=== PATIENT | female | born 1945 | race Two or more races ===

== ENCOUNTER 2018-06-10 13:21 | Emergency (ER) | payer BC, OTHER ==
[2018-06-10 13:31] VITALS: PULSE 76; TEMP 97.6; BMI 33.6
[2018-06-10] MEDS ORDERED: SODIUM CHLORIDE 500 ML IV STA (13:43)
[2018-06-10] MEDS ORDERED: ONDANSETRON 4 MG/2 ML VIAL IVPB ONE (13:43)
--- NOTE | 2018-06-10 13:43 | PDOC ---
History of Present Illness - General Chief Complaint: Nausea/Vomiting Stated Complaint: vomiting Time Seen by Provider: 06/10/18 13:41 - History of Present Illness Initial Comments: 06/10/18 17:38 Chief complaint: Nausea and vomiting History of present illness: Patient complains of 3 episodes of nausea and vomiting one yesterday morning after breakfast, once yesterday evening after dinner, and once this morning after drinking some water. She has had similar episodes in the past that have been attributed to diabetic gastroparesis. The daughter states that the symptoms occur frequently and seemed to be related to stress. Patient has been under considerable stress of late. Review of systems: There has been no abdominal pain, constipation, or diarrhea. Bowel movements are normal, last movement yesterday. No fever/chills, chest pain , shortness of breath, visual or focal neurologic symptoms, unsteadiness of gait. The patient is tolerating by mouth food and fluids in between episodes. Past medical history: Acw-[id number] diabetes, obesity, high blood pressure controlled on medication Social history: Lives alone but family is nearby, visits frequently, fully active and ambulatory, cares for herself, still driving Family history: Reviewed and noncontributory Physical exam: Alert and oriented moderately obese no acute distress cheerful and cooperative, the patient is lying comfortably and appears to be asymptomatic at present Afebrile, vital signs normal No pallor or icterus. PERRLA, fundi benign, ENT clear Neck supple without bruit mass or nodes Lungs clear with full breath sounds bilaterally. No wheezes rales or rhonchi CV S1 and S2 normal, regular, without murmur rub or gallop without JVD or edema pulses full and symmetric no bruits Abdomen nondistended. Bowel sounds normal. Soft without mass tenderness organomegaly. No CVAT Neurological intact Impression: Possible exacerbation of diabetic gastroparesis or symptoms of acute anxiety. Plan: CBC and chemistries, symptomatic treatment and further medical evaluation treatment depending on results of laboratory tests and response to treatment. Past History - Past Medical History Allergies/Adverse Reactions: Allergies Allergy/AdvReac Type Severity Reaction Status Date / Time No Known Allergies Allergy Verified 06/10/18 13:22 Home Medications: Ambulatory Orders Anastrozole [Arimidex -] 1 mg PO DAILY 06/10/18 Cholecalciferol (Vitamin D3) [Vitamin D3] 1,000 unit PO ASDIR 06/10/18 Cyanocobalamin (Vitamin B-12) [Vitamin B-12] 0 mcg PO ASDIR 06/10/18 Glipizide 5 mg PO DAILY 06/10/18 Levothyroxine [Synthroid -] 100 mcg PO DAILY 06/10/18 Ondansetron [Zofran Odt -] 4 - 8 mg SL TID PRN #15 od.tablet 06/10/18 Simvastatin 40 mg PO DAILY 06/10/18 metFORMIN HCL [Metformin HCl] 1,000 mg PO DAILY 06/10/18 Cancer: Yes (Left Breast) COPD: No Diabetes: Yes Hypercholesterolemia: Yes Thyroid Disease: Yes (hypo) - Suicide/Smoking/Psychosocial Hx Smoking History: Never smoked Hx Alcohol Use: No Drug/Substance Use Hx: No Substance Use Type: None *Physical Exam - Vital Signs Last Vital Signs Temp Pulse Resp BP Pulse Ox 97.6 F 76 18 140/71 95 06/10/18 13:22 06/10/18 13:22 06/10/18 13:22 06/10/18 13:22 06/10/18 13:22 ED Treatment Course - LABORATORY CBC & Chemistry Diagram: 06/10/18 14:02 06/10/18 14:02 Medical Decision Making - Medical Decision Making 06/10/18 17:44 CBC and chemistries without significant abnormalities. Serum glucose is 170. After IV fluids and Zofran, the patient is much more comfortable. No nausea or vomiting. No abdominal pain. Discussed relaxation techniques with the patient and her family and discharged to follow-up with primary physician, fully ambulatory and in no pain or other distress. *DC/Admit/Observation/Transfer Diagnosis at time of Disposition: Gastroparesis - Discharge Dispostion Disposition: HOME Condition at time of disposition: Improved Decision to Admit order: No - Prescriptions Prescriptions: Ondansetron [Zofran Odt -] 4 - 8 mg SL TID PRN #15 od.tablet PRN Reason: Nausea And/Or Vomiting - Referrals - Patient Instructions Printed Discharge Instructions: DI for Nausea -- Adult, DI for Vomiting -- Adult Additional Instructions: Return to ER if there is abdominal pain, fever, or worsening nausea/vomiting. Otherwise follow-up with primary physician in one to 2 days. Check urine culture in 24-48 hours. If positive, antibiotics will be prescribed. - Post Discharge Activity
[2018-06-10] MEDS ORDERED: ONDANSETRON 4 MG/2 ML VIAL ONE (14:01)
[2018-06-10 14:12] LABS: BASO % 0.5 % (0-2.0); EOS % 0.3 % (0-4.5); HEMOGLOBIN 12.6 GM/dl (10.7-15.3); LYMPH % 11.9 % (8-40); MCH 29.1 pg (25.7-33.7); MCHC 32.3 g/dl (32.0-36.0); MEAN CELL VOLUME 90.2 fl (80-96); MEAN PLT VOLUME 7.3 fl (7.5-11.1); MONO % 9.1 % (3.8-10.2); NEUT % 78.2 % (42.8-82.8); PLATELET COUNT 278 K/MM3 (134-434); RBC 4.33 M/mm3 (3.60-5.2); RDW 13.1 % (11.6-15.6); WHITE BLOOD COUNT 7.4 K/mm3 (4.0-10.8)
[2018-06-10 14:22] LABS: ALBUMIN 3.6 g/dl (3.5-5.0); ALK PHOS 122 U/L (32-92); ANION GAP 7 MMOL/L (8-16); BILIRUBIN,TOTAL 0.6 mg/dl (0.2-1.0); BLOOD UREA NITROGEN 12 mg/dl (7-18); CALCIUM 8.9 mg/dl (8.4-10.2); CHLORIDE 98 mmol/L (98-107); CO2 28 mmol/L (22-28); CREATININE 0.9 mg/dl (0.6-1.3); GLUCOSE,RANDOM 170 mg/dl (74-106); POTASSIUM 4.5 mmol/L (3.5-5.1); SGOT/AST 29 U/L (10-42); SGPT/ALT 33 U/L (10-40); SODIUM 133 mmol/L (136-145); TOT PROT 7.2 g/dl (6.4-8.3)
[2018-06-10 14:58] LABS: URINE APPEARANCE Cloudy; URINE BILIRUBIN Negative (NEGATIVE); URINE COLOR Amber; URINE GLUCOSE (UA) Negative (NEGATIVE); URINE KETONE Negative (NEGATIVE); URINE LEUK ESTERASE 3+ (NEGATIVE); URINE NITRITE Negative (NEGATIVE); URINE PROTEIN 1+ (NEGATIVE)
[2018-06-10 15:10] LABS: EPI CELLS MANY /HPF; URINE RBC 0-2 /hpf (0-3); URINE WBC 20-30 (0-5)
[2018-06-10 15:11] LABS: URINE BACTERIA MODERATE /hpf (NEGATIVE)
[2018-06-10 15:51] VITALS: BP 134/68
[2018-06-10 16:17] LABS: LIPASE 170 U/L (73-393)
== END 2018-06-10 15:50 | disposition home or self-care (01) ==
LOC: FER 13:21
PROC: 3E033GC Introduction of Other Therapeutic Substance into Peripheral Vein, Percutaneous Approach (ICD-10-PCS; principal; 2018-06-10)
PROC: 3E0337Z Introduction of Electrolytic and Water Balance Substance into Peripheral Vein, Percutaneous Approach (ICD-10-PCS; 2018-06-10)
DX: K31.84 Gastroparesis (principal); Z85.3 Personal history of malignant neoplasm of breast; E03.9 Hypothyroidism, unspecified; E78.00 Pure hypercholesterolemia, unspecified; E11.9 Type 2 diabetes mellitus without complications
CPT/HCPCS: 36415; 80053; 81003; 81015; 82550; 83690; 84484; 85025; 87086; 96361; 96374; 99283-25